=== PATIENT | female | born 1990 | race Caucasian/White ===

== ENCOUNTER 2022-05-01 11:16 | Inpatient (IN) | payer BC ==
[2022-05-01 12:09] LABS: Appearance,Urine Cloudy (Clear); Bacteria,Urine Occasional /hpf; Bilirubin,Urine Negative (Negative); Blood,Urine Moderate (Negative); Color,Urine Colorless; Glucose,Urine (UA) Negative (Negative); Ketones,Urine Negative (Negative); Leukocyte Esterase,Urine Moderate (Negative); Nitrite,Urine Negative (Negative); PH, Urine 7.5 (5.0-8.0); Protein,Urine Negative (Negative); RBC,Urine <1 /hpf (0-5); Specific Gravity,Urine 1.004 (1.001-1.035); Squamous Epithelial Cell,Urine 3 /hpf (0-4); Urobilinogen,Urine <2.0 mg/dL (<2.0); WBC,Urine 3 /hpf (0-5)
[2022-05-01 12:21] LABS: Protein/Creatinine Ratio,Urine 1.15
[2022-05-01 12:23] LABS: Anisocytosis Slight; Basophils % (A) 0 %; Eosinophils % (A) 0 %; HCT 34.1 % (34.0-46.0); HGB 10.9 gm/dL (11.4-16.0); Hypochromasia Moderate; Lymphocytes # (A) 1.2 k/uL (1.0-4.8); Lymphocytes % (A) 12 %; MCH 25.2 pg (25.0-35.0); MCV 78.7 fL (80.0-100.0); Mean Platelet Volume 7.6; Microcytosis Slight; Monocytes # (A) 0.6 k/uL (0-1.0); Monocytes % (A) 6 %; Neutrophils # (A) 7.9 k/uL (1.3-7.7); Neutrophils % (A) 80 %; Platelet Count 276 k/uL (150-450); RBC 4.34 m/uL (3.80-5.40); RDW 16.6 % (11.5-15.5)
[2022-05-01] MEDS ORDERED: DINOPROSTONE 10 MG INSERT.ER VAGINAL ONE (16:30)
[2022-05-01] MEDS ORDERED: BUTORPHANOL 1 MG/ML 1 ML VIAL IV PRN (16:56)
[2022-05-02] MEDS ORDERED: LIDOCAINE 0.5% (PF) 5 MG/ML (50 ML SDV) SQ PRN (04:04)
[2022-05-02] MEDS ORDERED: TERBUTALINE 1 MG/ML VIAL SQ PRN (04:04)
[2022-05-02] MEDS ORDERED: METHYLERGONOVINE 0.2 MG/ML 1 ML AMP IM PRN (04:04)
[2022-05-02] MEDS ORDERED: OXYTOCIN 10 UNIT/ML 1 ML VIAL IM PRN (04:04)
[2022-05-02] MEDS ORDERED: CARBOPROST TROMETHAMINE 250 MCG/ML 1 ML AMP IM PRN (04:04)
[2022-05-02] MEDS ORDERED: OXYTOCIN 30 UNITS/500 ML NS 30 UNIT in SALINE 1 500ML.BAG IV SCH ×2 (04:15→11:00)
[2022-05-02] MEDS: LACTATED RINGERS 1,000 ML IV SCH ×2 (05:00→08:36)
[2022-05-02 05:21] LABS: Anisocytosis Slight; Basophils # (A) 0.1 k/uL (0-0.2); Basophils % (A) 1 %; Eosinophils # (A) 0.1 k/uL (0-0.7); Eosinophils % (A) 1 %; HCT 35.9 % (34.0-46.0); HGB 11.2 gm/dL (11.4-16.0); Hypochromasia Slight; Lymphocytes # (A) 1.3 k/uL (1.0-4.8); Lymphocytes % (A) 11 %; MCH 24.7 pg (25.0-35.0); MCHC 31.3 g/dL (31.0-37.0); MCV 78.8 fL (80.0-100.0); Mean Platelet Volume 8.4; Microcytosis Slight; Monocytes # (A) 0.7 k/uL (0-1.0); Monocytes % (A) 6 %; Neutrophils # (A) 10.1 k/uL (1.3-7.7); Neutrophils % (A) 82 %; Platelet Count 286 k/uL (150-450); RBC 4.55 m/uL (3.80-5.40); RDW 16.5 % (11.5-15.5); WBC 12.3 k/uL (3.8-10.6)
[2022-05-02] MEDS ORDERED: fentaNYL (PF) 50 MCG/ML 5 ML AMP ONE (08:22)
[2022-05-02] MEDS ORDERED: ROPIVACAINE 5 MG/ML 20 ML AMPULE ONE (08:22)
[2022-05-02] MEDS ORDERED: SODIUM CHLORIDE 0.9% 100 ML BAG ONE (08:22)
--- NOTE | 2022-05-02 09:16 | P.HPOB ---
History of Present Illness H&P Date: 05/02/22 Chief Complaint: 39-5/7 weeks, -induced hypertension the patient is a 31-year-old 1 para 0 who was seen in the office yesterdayat 39-4/7 weeks at which time she had 2 blood pressures of 160/100. She has had some elevated blood pressures in the office which have normalized on repeat and has been following blood pressures at home. She reports her blood pressures have been creeping into the area of 140 over 90s regularly. As a result, she was sent to labor and delivery for evaluation for preeclampsia. Labs were drawn and were all essentially within normal limits. Her blood pressures did normalize for the most part at rest. Nevertheless, she was ad mitted for induction secondary to the lability that was seen as an outpatient. Her cervix is relatively unfavorable and Cervidil was placed for ripening. She did make some progress overnight to approximately 1-2 cm at which time she had spontaneous rupture of membranes for clear fluid. And is now in active labor. Her has been otherwise entirely uncomplicated. She is Rh- and received RhoGAM at 28 weeks. She is also known to be rubella nonimmune. Group B strep status is negative. Obstetrical history: 1 para 0 with current statistics listed in history present illness. EDC of 05/04/2022 was established by last menstrual period and confirmed by 14 week ultrasound.laboratory workup demonstrates a blood type of O- with a negative antibody screen. Rubella status is nonimmune. The remainder of her laboratory workup was within normal limits. One hour Glucola was normal and group B strep status is negative. Gynecologic history: Unremarkable with no history of any infections to include STDs. Review of Systems review of systems is confined to history of present illness. Past Medical History Past Medical History: No Reported History History of Any Multi-Drug Resistant Organisms: None Reported Past Surgical History: No Surgical Hx Reported Past Anesthesia/Blood Transfusion Reactions: No Reported Reaction Past Psychological History: No Psychological Hx Reported Smoking Status: Never smoker Past Drug Use History: None Reported - Past Family History Mother Family Medical History: No Reported History Medications and Allergies Home Medications Medication Instructions Recorded Confirmed Type Aspirin 1 tab PO DAILY 05/01/22 05/01/22 History Vit No.179/Iron/Folic 1 tab PO DAILY 05/01/22 05/01/22 History [ Tablet] Allergies Allergy/AdvReac Type Severity Reaction Status Date / Time No Known Allergies Allergy Verified 05/01/22 11:35 Exam Vital Signs Temp Pulse Resp BP Pulse Ox 05/01/22 11:34 98.2 F 76 16 139/98 99 Intake and Output 05/01/22 05/02/22 05/02/22 22:59 06:59 14:59 Other: # Voids 2 2 in general, this is a well-developed, well-nourished white female in no acute distress. Her heart has a regular rhythm and rate without murmur. Her lungs clear to auscultation bilaterally in all guerra. Her abdomen is gravid, nondistended, has normal active bowel sounds, soft, nontender, and without any palpable masses aside from uterine fundus. Her extremities are without any cyanosis, clubbing, or edema and are nontender to palpation bilaterally. Digital cervical examination at the time of placement of the Cervidil was fingertip dilation approximately 50% dilation and the vertex in presentation at -2-3 station. Cervidil was placed in the posterior cul-de-sac per protocol. Results Result Diagrams: 05/02/22 04:48 Abnormal Lab Results - Last 24 Hours (Table) 05/01/22 05/01/22 05/02/22 Range/Units 11:51 11:52 04:48 WBC 12.3 H (3.8-10.6) k/uL Hgb 10.9 L 11.2 L (11.4-16.0) gm/dL MCV 78.7 L 78.8 L (80.0-100.0) fL MCH 24.7 L (25.0-35.0) pg RDW 16.6 H 16.5 H (11.5-15.5) % Neutrophils # 7.9 H 10.1 H (1.3-7.7) k/uL Urine Appearance Cloudy H (Clear) Urine Blood Moderate H (Negative) Ur Leukocyte Esterase Moderate H (Negative) Urine Bacteria Occasional H (None) /hpf
[2022-05-02] MEDS ORDERED: HYDROcodone/APAP 7.5-325MG 1 EACH TAB PO PRN (10:51)
[2022-05-02] MEDS ORDERED: ZOLPIDEM 5 MG TAB PO PRN (10:51)
[2022-05-02] MEDS ORDERED: diphenhydrAMINE 50 MG CAP PO PRN (10:51)
[2022-05-02] MEDS ORDERED: diphenhydrAMINE 50 MG/ML 1 ML VIAL IVP PRN ×2 (10:51)
[2022-05-02] MEDS ORDERED: SIMETHICONE 80 MG CHEWABLE PO PRN (10:51)
[2022-05-02] MEDS ORDERED: ACETAMINOPHEN TAB 325 MG TAB PO PRN (10:51)
[2022-05-02] MEDS ORDERED: HYDROcodone/APAP 5-325MG 1 EACH TAB PO PRN (10:51)
[2022-05-02] MEDS ORDERED: HYDROCORTISONE 2.5% RECTAL CREAM 30 GM TUBE RECTAL PRN (10:51)
[2022-05-02] MEDS ORDERED: LANOLIN CREAM 5 GM TUBE TOPICAL PRN (10:51)
[2022-05-02] MEDS ORDERED: diphenhydrAMINE 25 MG CAP PO PRN (10:51)
[2022-05-02] MEDS ORDERED: BENZOCAINE/MENTHOL SPRAY 1 GM/SPRAY AEROSOL TOPICAL PRN (10:51)
--- NOTE | 2022-05-02 10:55 | P.PROBDLV ---
Vaginal Delivery Note - . Vaginal Delivery Note: the patient is a 31-year-old 1 para 0 admitted at 39-4/7 weeks and delivered at 39-5/7 weeks as established by good dating parameters. She is admitted from the office was initially significantly elevated blood pressures in the range of 160/100. Laboratory workup was negative for preeclampsia concerns and blood pressures normalized at rest on labor and delivery. Nevertheless, with blood pressures increasing at home, decision was made to proceed with induction of labor. Her cervix is relatively unfavorable and she had Cervidil placed. Her was otherwise uncomplicated though she is Rh- and rubella nonimmune. Group B strep status is negative. Overnight with Cervidil in place, she began to have fairly active contractions and had spontaneous rupture of membranes early this morning which time she was approximately 1-2 cm dilated. She made rapid progress through the remainder of the latent phase of labor and had an epidural catheter placed for analgesia. She then progressed fairly quickly through the active phase of labor to complete and pushed over the course of approximately 20 minutes to a normal spontaneous vaginal delivery of a viable 6 lbs. 14 oz. baby boy with Apgars of 9 at 1 minute and 9 at 5 minutes delivered in the direct occiput anterior position. The placenta was delivered spontaneously, intact, and grossly normal with a grossly normal, centrally inserted three-vessel cord. There was a small second-degree midline episiotomy cut for delivery which did not extend and was repaired in standard fashion using 3-0 chromic catgut without difficulty. Estimated blood loss for the case was approximately 300 mL. There were no complications. All sponge, instrument, needle counts were correct. Both mother and are resting comfortably in recovery.
[2022-05-02] MEDS ORDERED: MEASLES-MUMPS-RUBELLA VACC/PF 12,500 UNIT/0.5 ML VIAL SQ ONE (14:55)
[2022-05-02] MEDS ORDERED: Rhogam IMMUNE GLOBULIN 1,500 UNIT/1 ML IM ONE (15:19)
[2022-05-03 07:32] LABS: Anisocytosis Slight; Basophils % (A) 0 %; Eosinophils # (A) 0.1 k/uL (0-0.7); Eosinophils % (A) 0 %; HCT 27.3 % (34.0-46.0); Hypochromasia Moderate; Lymphocytes # (A) 1.4 k/uL (1.0-4.8); Lymphocytes % (A) 9 %; MCH 25.2 pg (25.0-35.0); MCHC 31.7 g/dL (31.0-37.0); MCV 79.5 fL (80.0-100.0); Mean Platelet Volume 8.4; Monocytes # (A) 0.7 k/uL (0-1.0); Monocytes % (A) 5 %; Neutrophils # (A) 12.4 k/uL (1.3-7.7); Neutrophils % (A) 84 %; Platelet Count 242 k/uL (150-450); RBC 3.43 m/uL (3.80-5.40); RDW 16.7 % (11.5-15.5); WBC 14.7 k/uL (3.8-10.6)
[2022-05-03 07:35] LABS: HGB 8.6 gm/dL (11.4-16.0)
[2022-05-03] MEDS: SENNOSIDES-DOCUSATE SODIUM 1 EACH TAB PO SCH ×3 (08:31→19:58)
[2022-05-03] MEDS: IBUPROFEN 600 MG TAB PO PRN ×3 (08:31→19:58)
--- NOTE | 2022-05-03 08:54 | P.DS ---
Providers Date of admission: 05/01/22 11:16 Expected date of discharge: 05/03/22 Attending physician: Gildardo Osei Primary care physician: Micki Jack [place] [facility] Course: the patient is a 31-year-old 1 para 0 admitted at 39-4/7 weeks secondary to elevated blood pressures in the office as well as at home. She also complained of some headache. She was sent to labor and delivery for evaluation for preeclampsia which was ultimately negative and her blood pressures remained in relatively normal level. Nevertheless the decision was made to proceed with induction. As her cervix is relatively unfavorable, Cervidil was placed and, overnight, resulted in the onset of labor. She had an epidural catheter placed at the onset of the active phase of labor and had spontaneous rupture of membranes. She progressed fairly quickly through the active phase of labor to complete and then pushed to a normal spontaneous vaginal delivery of a viable 6 lbs. 14 oz. baby boy with Apgars of 9 at 1 minute and 9 at 5 minutes. Her course was unremarkable with vital signs remaining stable and her temperature was afebrile throughout. She was deemed stable for discharge on day #1 was discharged home to follow-up in the office in 6 weeks' time routinely. Discharge instructions included calling for any significantly increased bleeding or foul-smelling lochia, significantly increased fever abdominal pain, perineal complaints, breast complaints, or anything else that concerned her. She is additionally instructed to have nothing in the vagina for at least 6 weeks time to include intercourse. She understood her instructions and agrees follow up as noted above. Discharge medications included continued vitamins as she has opted to breast-feed. She additionally was instructed he is iron sulfate once daily for at least a month rebuild her hemoglobin as her hemoglobin was found to be 8.6. Maternal blood type is O- and cord blood was sent for evaluation for the necessity of RhoGAM prior to discharge. She additionally is rubella nonimmune and will receive the MMR vaccination prior to discharge. Procedures: #1. Cervidil cervical ripening #2. Epidural analgesia #3. Normal spontaneous vaginal delivery #4. Secondary midline episiotomy and repair Patient Condition at Discharge: Stable Plan - Discharge Summary New Discharge Prescriptions: No Action Vit No.179/Iron/Folic [ Tablet] 1 tab PO DAILY Aspirin 1 tab PO DAILY Discharge Medication List Aspirin 1 tab PO DAILY 05/01/22 [History] Vit No.179/Iron/Folic [ Tablet] 1 tab PO DAILY 05/01/22 [History] Follow up Appointment(s)/Referral(s): Gildardo Osei MD [STAFF PHYSICIAN] - 6 Weeks Discharge Disposition: HOME SELF-CARE
[2022-05-04] MEDS: SENNOSIDES-DOCUSATE SODIUM 1 EACH TAB PO SCH (07:53)
[2022-05-04] MEDS: IBUPROFEN 600 MG TAB PO PRN (14:48)
[2022-05-04 15:35] VITALS: BP 158/97; PULSE 104; RESP 20; TEMP 98.5
== END 2022-05-04 16:00 | disposition home or self-care (01) | DRG 807 ==
LOC: 4FBP 11:16
PROVIDERS: ADMIT Obstetrics & Gynecology; ATTEND Obstetrics & Gynecology
PROC: 10E0XZZ Delivery of Products of Conception, External Approach (ICD-10-PCS; principal; 2022-05-02)
PROC: 3E0P7VZ Introduction of Hormone into Female Reproductive, Via Natural or Artificial Opening (ICD-10-PCS; 2022-05-02)
PROC: 3E0R3BZ Introduction of Anesthetic Agent into Spinal Canal, Percutaneous Approach (ICD-10-PCS; 2022-05-02)
PROC: 0W8NXZZ Division of Female Perineum, External Approach (ICD-10-PCS; 2022-05-02)
DX: O13.4 Gestational [pregnancy-induced] hypertension without significant proteinuria, complicating childbirth (principal); Z37.0 Single live birth; R51.9 Headache, unspecified; Z79.82 Long term (current) use of aspirin; Z3A.39 39 weeks gestation of pregnancy
CPT/HCPCS: 81001; 82570; 83615; 84156; 84450; 84460; 84550; 85025; 85461; 86850; 86870; 86880; 86900; 86901; 88307; 90707